=== PATIENT | female | born 1995 ===

== ENCOUNTER 2020-01-09 03:46 | Inpatient (IN) | payer OTHER ==
[2020-01-09] MEDS: DEXTROSE 5%-LACTATED RINGERS 1,000 ML IV SCH (05:15)
[2020-01-09] MEDS ORDERED: BUTORPHANOL TARTRATE 1 MG/ML VIAL IVPB ONE (05:30)
[2020-01-09] MEDS ORDERED: PROMETHAZINE HCL 25 MG/1 ML VIAL IVPB ONE ×2 (05:30→10:00)
[2020-01-09 05:58] VITALS: BMI 29.8
[2020-01-09] MEDS ORDERED: AMPICILLIN - 2 GM in SODIUM CHLORIDE 100 ML IVPB ONE (06:00)
[2020-01-09 06:15] LABS: BASO % 0.2 % (0-2.0); EOS % 0.3 % (0-4.5); HEMATOCRIT 36.2 % (32.4-45.2); HEMOGLOBIN 11.9 GM/dL (10.7-15.3); MCH 30.5 pg (25.7-33.7); MCHC 32.8 g/dl (32.0-36.0); MEAN CELL VOLUME 93.1 fl (80-96); MEAN PLT VOLUME 7.8 fl (7.5-11.1); MONO % 5.1 % (3.8-10.2); NEUT % 78.4 % (42.8-82.8); PLATELET COUNT 350 K/MM3 (134-434); RBC 3.89 M/mm3 (3.60-5.2); RDW 14.8 % (11.6-15.6); WHITE BLOOD COUNT 13.3 K/mm3 (4.0-10.0)
[2020-01-09] MEDS ORDERED: AMPICILLIN SODIUM 2 GM VIAL ONE (06:24)
[2020-01-09 06:38] LABS: BLOOD UREA NITROGEN 9.2 mg/dL (7-18); CALCIUM 9.2 mg/dL (8.5-10.1); CREATININE 0.7 mg/dL (0.55-1.3)
[2020-01-09 06:53] LABS: INR 0.95 (0.83-1.09); PROTHROMBIN TIME (PATIENT) 11.2 SEC (9.7-13.0)
[2020-01-09 06:56] LABS: ACTIVATED PTT 28.7 SECONDS (25.2-36.5)
[2020-01-09] MEDS: CLINDAMYCIN 600MG PREMIX IVPB 600 MG/50 ML BAG IVPB SCH ×3 (07:00→21:34)
[2020-01-09] MEDS ORDERED: diphenhydrAMINE HCL 25 MG CAPSULE (FP) PO ONE ×2 (07:00→07:15)
[2020-01-09] MEDS ORDERED: CLINDAMYCIN PHOSPHATE 600 MG/4 ML VIAL ONE (07:21)
[2020-01-09] MEDS: levETIRAcetam 500 MG TABLET (FP) PO SCH ×2 (09:20→21:33)
[2020-01-09] MEDS ORDERED: BUTORPHANOL TARTRATE 2 MG/ML VIAL ONE (09:30)
[2020-01-09] MEDS ORDERED: PROMETHAZINE HCL 25 MG/1 ML VIAL ONE (09:30)
[2020-01-09] MEDS ORDERED: BUTORPHANOL TARTRATE 2 MG/ML VIAL IVPB ONE (10:00)
[2020-01-09] MEDS ORDERED: AMPICILLIN - 1 GM in SODIUM CHLORIDE 100 ML IVPB SCH (10:00)
[2020-01-09] MEDS: ELECTROLYTE-148 SOLN 1,000 ML IV SCH (12:00)
[2020-01-09] MEDS ORDERED: PCA PUMP NR ONE (13:12)
[2020-01-09] MEDS ORDERED: FENTANYL/BUPIVACAINE/NS/PF - PCEA - 50 ML DISP.SYRIN EP ONE (13:13)
[2020-01-09] MEDS: FENTANYL/BUPIVACAINE/NS/PF - PCEA - 50 ML DISP.SYRIN EP SCH (14:00)
[2020-01-09] MEDS ORDERED: NALOXONE HCL 0.4 MG/ML VIAL IVPUSH PRN (14:04)
--- NOTE | 2020-01-09 14:21 | HP ---
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: Alzheimer's, CVA, Dementia, Migraine, Multiple Sclerosis, Peripheral Neuropathy, Parkinson's, Seizure, Syncope, TIA, Vertigo, Other Cardiovascular: No: AFIB, Aneurysm, Aortic Insufficiency, Aortic Stenosis, CAD, CHF, Deep Vein Thrombosis, HTN, Hyperlipdemia, [place], Mitral Insufficiency, Mitral Stenosis, Murmur, Pulmonary Hypertension, Other Pulmonary: No: Asthma, Bronchitis, Cancer, COPD, O2 Dependent, Pneumonia, Previously Intubated, Pulmonary Embolus, Pulmonary Fibrosis, Sleep Apnea, Other Gastrointestinal: No: Ascites, Cancer, Constipation, Crohn's Disease, Diverticulitis, Diverticulosis, Esophageal Varices, Gastritis, GERD, GI Bleed, Hemorrhoids, Hiatal Hernia, Inflamatory Bowel Disease, Irritable Bowel Disease, Pancreatitis, Peptic Ulcer Disease, Ulcerative Colitis, Other Hepatobiliary: No: Cirrhosis, Cholelithiasis, Cholecystitis, Choledocholithiasi s, Hepatitis A, Hepatitis B, Hepatitis C, Other Renal/: No: Renal Failure, Renal Inusuff, BPH, Cancer, Hematuria, Hemodialysis, Neurogenic Bladder, Renal Calculi, UTI, Other Reproductive: No: Ectopic , Endometriosis, Fibroids, PID, Polycystic Ovary Syndrome, Postmenopausal, Other ...: 2 ...Para: 0 ...Term: 0 ...: 0 ...Spon : 1 ...Induced : 0 ...Living Children: 0 ...Multiple Gestation: 0 ...LMP: 04/13/20 ... Weeks Gestation by Dates: 39.1 ...EDC by Dates: 01/15/20 Heme/Onc: No: Anemia, B12 Deficiency, Bleeding Disorder, Cancer, Current Chemotherapy, Current Radiation Therapy, Hemochromatosis, Hypercoaguable State, Myeloproliferative Synd, Sickle Cell Disease, Sickle Cell Trait, Thrombocytopenia, Other Infectious Disease: No: AIDS, C-Diff, Herpes Zoster, HIV, MRSA, STD's, Tu berculosis, VREF, Other Psych: No: Addictions, Anxiety, Bipolar, Depression, Panic, Psychosis, Schizophrenia, Other Musculoskeletal: No: Bursitis, Chronic low back pain, Hemiparesis, Hemiplegia, Osteoarthritis, Paraplegia, Other Rheumatology: No: Fibromyalgia, Gout, Lupus, Rheumatoid Arthritis, Sarcoidosis, Vasculitis, Other ENT: No: Allergic Rhinitis, Sinusitis, Other Endocrine: No: Dariel's Disease, [place]'s Disease, Diabetes Insipidus, Diabetes Mellitus, Hyperparathyroidism, Hyperthyroidism, Hypothyroidism, Osteopenia, SIADH, Other Dermatology: No: Basal Cell, Cellulitis, Eczema, Melanoma, Psoriasis, Squamous Cell, Other - Past Surgical History Past Surgical History: No: None, AAA Repair, AICD, Amputation, Appendectomy, Arthrosocopy, AV Fistula/Graft, Bariatric Surgery, Breast Biopsy, Bypass, CABG, Carotid Endarterectomy, Cataract Removal, Cholecystectomy, Colectomy, Colonoscopy, Colostomy, Craniotomy, , Cystectomy, Hernia Repair, Hysterectomy, Ileal Conduit, Ileosotomy, Joint Replacement, Kidney Transplant, Laminectomy, Liver Transplant, Mastectomy, Nephrectomy, Oopherectomy, Orc hiectomy, Permanent Pacemaker, Prostatectomy, Splenectomy, Stent, Thoracotomy, TURP, Tonsillectomy, Tubal Ligation, Upper Endoscopy, Valve Replacement, Vasectomy, Vein Stripping/Ligation Hx Myomectomy: No Hx Transabdominal Cerclage: No - Advance Directives Advance Directives: Yes: Living Will - Smoking History Smoking history: Never smoked Have you smoked in the past 12 months: No - Alcohol/Substance Use Hx Alcohol Use: No - Social History Usual Living Arrangement: Yes: With Significant Other Do you think of yourself as: Straight/Heterosexual ADL: Independent History of Recent Travel: No Home Medications - Allergies Allergies/Adverse Reactions: Allergies Allergy/AdvReac Type Severity Reaction Status Date / Time No Known Drug Allergies Allergy Verified 01/09/20 06:17 Penicillins Allergy Verified 01/09/20 07:14 - Home Medications Home Medications: Ambulatory Orders Levetiracetam 500 mg PO BID 01/09/20 Mv-Mn/Iron/FA/Herbal/Digestive [ One Tablet] 1 tab PO DAILY 01/09/20 Family Medical History Family History: Denies Review of Systems - Review of Systems Constitutional: reports: No Symptoms Eyes: reports: No Symptoms HENT: reports: No Symptoms Neck: reports: No Symptoms Cardiovascular: reports: No Symptoms Respiratory: reports: No Symptoms Gastrointestinal: reports: No Symptoms Genitourinary: reports: No Symptoms Breasts: reports: No Symptoms Reported Musculoskeletal: reports: No Symptoms Integumentary: reports: No Symptoms Neurological: reports: No Symptoms Endocrine: reports: No Symptoms Hematology/Lymphatic: reports: No Symptoms Psychiatric: reports: No Symptoms Physical Exam - Maternity Vital Signs: Vital Signs Temperature 98.2 F 01/09/20 10:00 Pulse Rate 88 01/09/20 10:00 Respiratory Rate 20 01/09/20 10:00 Blood Pressure 134/71 01/09/20 10:00 O2 Sat by Pulse Oximetry (%) Constitutional: Yes: Well Nourished, No Distress, Calm Eyes: Yes: WNL, Conjunctiva Clear, EOM Intact HENT: Yes: WNL, Atraumatic, Normocephalic Neck: Yes: WNL, Supple, Trachea Midline Cardiovascular: Yes: WNL, Regular Rate and Rhythm Lungs: Clear to auscultation Breast(s): Yes: WNL - Abdominal Exam/OB Fundal Height: 40 Number of Fetuses: Single Presentation: Vertex Contractions: Yes Regularity: Regular Intensity: Moderate Monitor Mode: External Heart Rate (range): 150 Heart Rate Location: Q Accelerations: Uniform Decelerations: None - Vaginal Exam/OB Vaginal Bleeding: No Speculum Exam: No Dilatation (cm): 4 Effacement (%): 80 Amniotic Membrane Status: Intact Presentation: Vertex/Position Station: -2 - Physical Exam Musculoskeletal: Yes: WNL Extremities: Yes: WNL Edema: Yes Edema: LUE: 1+, RUE: 1+, LLE: 1+, RLE: 1+ Integumentary: Yes: WNL Deep Tendon Reflex Grade: Normal +2 ...Motor Strength: WNL Psychiatric: Yes: WNL, Alert, Oriented - Labs Lab Results: CBC, BMP 01/09/20 05:25 01/09/20 05:25 Hemorrhage Risk Assessment - Risk Factors Medium Risk Factors: Yes: None High Risk Factors: Yes: None Risk Score: 1 Risk Level: Medium Risk Assessment/Plan for laboring by herself
--- NOTE | 2020-01-09 14:22 | PN ---
Progress Note (short form) - Note Progress Note: 1 pm, 4 to 5 cm , for epidural , nst cat 1, uc q 5 min,
[2020-01-09] MEDS: OXYTOCIN 30 UNITS in 0.9% NS 30 UNIT/500 ML INFUS.BAG IVPB SCH (14:30)
[2020-01-09] MEDS ORDERED: METHYLERGONOVINE MALEATE 0.2 MG/1 ML AMP IM PRN (17:13)
[2020-01-09] MEDS ORDERED: WITCH HAZEL 50% (TUCKS) 40 PAD/JAR PAD TP PRN (17:13)
[2020-01-09] MEDS ORDERED: BENZOCAINE 28 GM HEMORRHOIDAL OINTMENT TP PRN (17:13)
[2020-01-09] MEDS ORDERED: oxyCODONE HCL 5 MG TABLET PO PRN (17:13)
[2020-01-09] MEDS ORDERED: BISACODYL 10 MG SUPP.RECT RC PRN (17:13)
--- NOTE | 2020-01-09 19:01 | PN ---
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
[2020-01-09] MEDS ORDERED: OXYTOCIN 20 UNITS in 0.9% NS 20 UNIT/1,000 ML INFUS.BAG IV ONE (19:53)
[2020-01-09] MEDS: ACETAMINOPHEN 325 MG TABLET (FP) PO PRN (22:00)
[2020-01-09] MEDS: IBUPROFEN 600 MG TABLET (FP) PO PRN (22:00)
[2020-01-10] MEDS: CLINDAMYCIN 600MG PREMIX IVPB 600 MG/50 ML BAG IVPB SCH (02:59)
[2020-01-10] MEDS: IBUPROFEN 600 MG TABLET (FP) PO PRN ×3 (08:14→23:07)
[2020-01-10] MEDS: ACETAMINOPHEN 325 MG TABLET (FP) PO PRN ×2 (08:15→23:08)
[2020-01-10 08:45] LABS: BASO % 0.3 % (0-2.0); EOS % 0.1 % (0-4.5); HEMATOCRIT 33.8 % (32.4-45.2); HEMOGLOBIN 11.4 GM/dL (10.7-15.3); LYMPH % 10.8 % (8-40); MCHC 33.8 g/dl (32.0-36.0); MEAN CELL VOLUME 94.6 fl (80-96); MEAN PLT VOLUME 7.9 fl (7.5-11.1); MONO % 4.3 % (3.8-10.2); NEUT % 84.5 % (42.8-82.8); PLATELET COUNT 318 K/MM3 (134-434); RBC 3.57 M/mm3 (3.60-5.2); RDW 15.1 % (11.6-15.6); WHITE BLOOD COUNT 16.7 K/mm3 (4.0-10.0)
[2020-01-10] MEDS: levETIRAcetam 500 MG TABLET (FP) PO SCH ×2 (09:45→21:56)
[2020-01-10] MEDS: PRENATAL VITAMINS W/ FOLIC ACID TABLET (FP) PO SCH (09:45)
[2020-01-10] MEDS: BENZOCAINE 20% 57 GM BOTTLE TP PRN ×2 (09:45→23:10)
[2020-01-10] MEDS: OXYTOCIN 30 UNITS in 0.9% NS 30 UNIT/500 ML INFUS.BAG IVPB SCH (15:00)
[2020-01-10] MEDS: ELECTROLYTE-148 SOLN 1,000 ML IV SCH (15:00)
[2020-01-10] MEDS: FENTANYL/BUPIVACAINE/NS/PF - PCEA - 50 ML DISP.SYRIN EP SCH (15:00)
[2020-01-10] MEDS: OXYTOCIN 20 UNITS in 0.9% NS 20 UNIT/1,000 ML INFUS.BAG IV SCH (19:39)
[2020-01-10] MEDS: DEXTROSE 5%-LACTATED RINGERS 1,000 ML IV SCH (19:41)
--- NOTE | 2020-01-10 20:44 | PN ---
Post Progress Note Post Day: 1 Type of Delivery: Vital Signs: Vital Signs Temperature 98.3 F 01/10/20 14:34 Pulse Rate 82 01/10/20 14:34 Respiratory Rate 18 01/10/20 14:34 Blood Pressure 110/72 01/10/20 14:34 O2 Sat by Pulse Oximetry (%) 100 01/09/20 16:00 Breast Exam: Yes: Soft Uterus: Yes: Fundus Firm, Fundus below umbilicus, Non-tender Abdomen/GI: Yes: Abdomen soft, Passing flatus, Tolerating PO Lochia: Yes: Serosa Lochia, amount: Small Extremities: Yes: Calves non-tender Perineum: Yes: Episiotomy Activity: Ambulating (doing well, dc pt home tomorrow ) - Labs Labs: CBC WBC 16.7 K/mm3 (4.0-10.0) H 01/10/20 07:46 RBC 3.57 M/mm3 (3.60-5.2) L 01/10/20 07:46 Hgb 11.4 GM/dL (10.7-15.3) 01/10/20 07:46 Hct 33.8 % (32.4-45.2) 01/10/20 07:46 MCV 94.6 fl (80-96) 01/10/20 07:46 MCH 32.0 pg (25.7-33.7) 01/10/20 07:46 MCHC 33.8 g/dl (32.0-36.0) 01/10/20 07:46 RDW 15.1 % (11.6-15.6) 01/10/20 07:46 Plt Count 318 K/MM3 (134-434) 01/10/20 07:46 MPV 7.9 fl (7.5-11.1) 01/10/20 07:46 Absolute Neuts (auto) 14.1 K/mm3 (1.5-8.0) H 01/10/20 07:46 Neutrophils % 84.5 % (42.8-82.8) H 01/10/20 07:46 Lymphocytes % 10.8 % (8-40) D 01/10/20 07:46 Monocytes % 4.3 % (3.8-10.2) 01/10/20 07:46 Eosinophils % 0.1 % (0-4.5) 01/10/20 07:46 Basophils % 0.3 % (0-2.0) 01/10/20 07:46 Nucleated RBC % 0 % (0-0) 01/10/20 07:46
--- NOTE | 2020-01-10 20:46 | DS ---
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: Vital Signs Temperature 98.3 F 01/10/20 14:34 Pulse Rate 82 01/10/20 14:34 Respiratory Rate 18 01/10/20 14:34 Blood Pressure 110/72 01/10/20 14:34 O2 Sat by Pulse Oximetry (%) 100 01/09/20 16:00 Constitutional: Yes: Well Nourished, No Distress, Calm Eyes: Yes: WNL, Conjunctiva Clear, EOM Intact HENT: Yes: WNL, Atraumatic, Normocephalic Neck: Yes: WNL, Supple, Trachea Midline Cardiovascular: Yes: WNL, Regular Rate and Rhythm Respiratory: Yes: WNL, Regular, CTA Bilaterally Gastrointestinal: Yes: WNL, Normal Bowel Sounds, Soft ...Rectal Exam: Yes: WNL Renal/: Yes: WNL Pelvis: Yes: WNL External Genitalia: Yes: Normal Internal Exam Deferred: Yes Vaginal Exam: Yes: Normal Cervix: Yes: Normal Uterus: Yes: Normal Adnexa: Normal: Bilateral ....Post : Yes: Uterus firm, Uterus non-tender Breast(s): Yes: WNL Musculoskeletal: Yes: WNL Extremities: Yes: WNL Edema: Yes Integumentary: Yes: WNL Wound/Incision: Yes: Clean/Dry, Well Approximated Neurological: Yes: WNL, Alert, Oriented ...Motor Strength: WNL Psychiatric: Yes: WNL, Alert, Oriented Labs: CBC, BMP 01/10/20 07:46 01/09/20 05:25 Delivery - Delivery Vaginal Delivery: No Problems Type of Anesthesia: Epidural Episiotomy/Laceration: Right Mediolateral EBL (cc): 300 Delivery, Single - Stages of Labor Date 1st Stage Initiatied: 01/09/20 Time 1st Stage Initiated: 03:00 Date 2nd Stage Initiated: 01/09/20 Time 2nd Stage Initiated: 16:15 Date of Delivery: 01/09/20 Time of Delivery: 16:45 Time Placenta Delivered: 16:50 Placenta: Yes: Spontaneous - Condition of Glass Maker/Campus Safety Officer Present: No Infant Gender: Male Weight: 2.92 kg Position: Left, OA Total Hours ROM (Hrs/Mins): 6H50M - 1 Minute Total Score: 9 5 Minutes Total Score: 9 - [place] Feeding Plan Initial Plan: Elected not to breastfeed exclusively throughout hospitalization Discharge Summary Problems reviewed: Yes Reason For Visit: LABOR Procedures: Principal: Condition: Good - Instructions Diet, Activity, Other Instructions: Physical activity Resume your normal everyday activity as tolerated no heavy lifting or exercise until seen by your surgeon. You may walk unlimited matteo of and climb stairs. You may resume driving the car when you feel safe and comfortable behind the wheel. No sexual activity as instructed. Wound care If you have a bandage, leave it on, and keep dry for 48-72 hours. After that time discard the outer bandage. If they are tapes on the skin under the out of bandage leave them in place. They will peel off in the next 7 to 10 days. Do Not Peel them off. You may shower the day after surgery. If there are tapes present on the skin, you may shower over them. Diet There are no dietary restrictions. Eat healthy, high-fiber foods. Drink 6 to 8 glasses of liquid each day. This will assist in keeping your bowels are regular. Pain management You may take Tylenol or acetaminophen or Ibuprofen (for example, Motrin, Advil etc.) from my pain prescription medication is ordered should be taken as prescribed for moderate to severe pain. Call MD for any of the following: call dr richardson for 6 weeks appointment Severe pain not relieved by medication Fever of 101 or higher Excessive bleeding or drainage on dressing Inability to urinate Disposition: HOME - Home Medications Comprehensive Discharge Medication List: Ambulatory Orders Levetiracetam 500 mg PO BID 01/09/20 Mv-Mn/Iron/FA/Herbal/Digestive [ One Tablet] 1 tab PO DAILY 01/09/20 Prescription Drug Monitoring Program (I-STOP) results: I-STOP reviewed and no issues identified
[2020-01-10] MEDS ORDERED: SENNOSIDES/DOCUSATE COMBO (SENNA PLUS) TABLET (UD) PO PRN (22:00)
--- NOTE | 2020-01-11 08:07 | PN ---
Post Progress Note Post Day: 2 Type of Delivery: Vital Signs: Vital Signs Temperature 98.3 F 01/10/20 22:00 Pulse Rate 94 H 01/10/20 22:00 Respiratory Rate 18 01/10/20 22:00 Blood Pressure 117/73 01/10/20 22:00 O2 Sat by Pulse Oximetry (%) 100 01/09/20 16:00 Breast Exam: Yes: Soft Uterus: Yes: Fundus Firm, Fundus below umbilicus Abdomen/GI: Yes: Abdomen soft, Passing flatus, Tolerating PO Lochia: Yes: Serosa Lochia, amount: Small Extremities: Yes: Calves non-tender Perineum: Yes: Episiotomy, Laceration (pt home ) Activity: Ambulating - Labs Labs: CBC WBC 16.7 K/mm3 (4.0-10.0) H 01/10/20 07:46 RBC 3.57 M/mm3 (3.60-5.2) L 01/10/20 07:46 Hgb 11.4 GM/dL (10.7-15.3) 01/10/20 07:46 Hct 33.8 % (32.4-45.2) 01/10/20 07:46 MCV 94.6 fl (80-96) 01/10/20 07:46 MCH 32.0 pg (25.7-33.7) 01/10/20 07:46 MCHC 33.8 g/dl (32.0-36.0) 01/10/20 07:46 RDW 15.1 % (11.6-15.6) 01/10/20 07:46 Plt Count 318 K/MM3 (134-434) 01/10/20 07:46 MPV 7.9 fl (7.5-11.1) 01/10/20 07:46 Absolute Neuts (auto) 14.1 K/mm3 (1.5-8.0) H 01/10/20 07:46 Neutrophils % 84.5 % (42.8-82.8) H 01/10/20 07:46 Lymphocytes % 10.8 % (8-40) D 01/10/20 07:46 Monocytes % 4.3 % (3.8-10.2) 01/10/20 07:46 Eosinophils % 0.1 % (0-4.5) 01/10/20 07:46 Basophils % 0.3 % (0-2.0) 01/10/20 07:46 Nucleated RBC % 0 % (0-0) 01/10/20 07:46
[2020-01-11] MEDS: PRENATAL VITAMINS W/ FOLIC ACID TABLET (FP) PO SCH (09:01)
[2020-01-11] MEDS: levETIRAcetam 500 MG TABLET (FP) PO SCH (09:01)
[2020-01-11] MEDS: BENZOCAINE 20% 57 GM BOTTLE TP PRN (09:01)
[2020-01-11] MEDS: IBUPROFEN 600 MG TABLET (FP) PO PRN (09:55)
[2020-01-11] MEDS: ACETAMINOPHEN 325 MG TABLET (FP) PO PRN (09:56)
[2020-01-11 10:20] VITALS: BP 116/65; PULSE 81; TEMP 98
== END 2020-01-11 13:50 | disposition home or self-care (01) | DRG 560 ==
LOC: JDEL 03:46 → JLDR 04:40 → J3W 20:15
PROVIDERS: ADMIT Obstetrics & Gynecology; ATTEND Obstetrics & Gynecology
PROC: 10E0XZZ Delivery of Products of Conception, External Approach (ICD-10-PCS; principal; 2020-01-09)
PROC: 0W8NXZZ Division of Female Perineum, External Approach (ICD-10-PCS; 2020-01-09)
DX: O99.824 Streptococcus B carrier state complicating childbirth (principal); O99.353 Diseases of the nervous system complicating pregnancy, third trimester; G40.909 Epilepsy, unspecified, not intractable, without status epilepticus; Z3A.39 39 weeks gestation of pregnancy; Z37.0 Single live birth; Z88.0 Allergy status to penicillin
CPT/HCPCS: 36415; 59025; 59409; 80048; 85025; 85610; 85730; 86780; 86850; 86900; 86901; 87389; U0003